=== PATIENT | female | born 1965 | race Two or more races ===

== ENCOUNTER 2024-06-20 07:20 | Day surgery (SDC) | payer BC, SELFPAY ==
[2024-06-19 12:48] VITALS: BMI 33.3
[2024-06-20] VITALS (13 sets, daily range): BP systolic 118–182; BP diastolic 79–122; PULSE 73–102; RESP 12–26; TEMP 36.6–36.7; O2SAT 86–98; BMI 33.2
[2024-06-20] MEDS: MEPERIDINE INJ 25 MG/ML VIAL (ASD USE ONLY) IV (09:20)
[2024-06-20] MEDS: MIDAZOLAM INJ 1 MG/ML VIAL 2 ML (ASD USE ONLY) 2 MG IV (09:20)
[2024-06-20] MEDS: fentaNYL CIT INJ 50 mCg/ML AMP 2ML (ASD USE ONLY) IV (09:24)
[2024-06-20] MEDS: DiphenhydrAMINE INJ 50 MG/ML VIAL 25 MG IV (09:24)
[2024-06-20] MEDS: SODIUM CHLORIDE 0.9% 500 ML 500 ML 150 ML IV (09:50)
[2024-06-20] MEDS: ONDANSETRON INJ 2 MG/ML INJ 2 ML 4 MG IV (10:05)
--- NOTE | 2024-06-20 10:22 | SUR.PHASEII ---
0943 Pt arrived into PACU. Extremely sedate. No response with painful stimuli. Nasal trumpet remains in place. Lung sounds clear upon resp. BS x 4. Will continue to monitor closely. 0950 IV NS 500ml hung. Pt remains sedated. Sats 94% on 4L/oxy mask
--- NOTE | 2024-06-20 10:36 | SUR.PHASEII ---
1010 Pt remains drowsy, yet approp. Denies pain, N/V or SOB. Respirations and oxygenation improved.
--- NOTE | 2024-06-20 11:21 | SUR.PHASEII ---
1045 Pt more awake and alert. 02 weaned off. Pt denies ain or N/V. Cont to pass flatus. , Dwayne, given pt update. 1105 Pt assessment unchanged. No complaints. Amb with steady gait. assisting pt with getting dressed. DC instructions given. Both state understanding. Pt meets dc criteria-to home.
== END 2024-06-20 11:05 | disposition home or self-care (01) ==
PROVIDERS: PCP Family Medicine; Referring Provider Specialist; Visit Provider Specialist
PROC: 0DBE8ZX Excision of Large Intestine, Via Natural or Artificial Opening Endoscopic, Diagnostic (ICD-10-PCS; CPT 45380; principal; 2024-06-20 12:00)
DX: K64.9 Unspecified hemorrhoids (principal); K57.31 Diverticulosis of large intestine without perforation or abscess with bleeding
CPT/HCPCS: 45378; J1200; J2175; J2250; J2405; J3010; J7040

== ENCOUNTER → 2024-07-16 | Outpatient (CLI) | payer BC, SELFPAY ==
--- NOTE | 2024-07-16 10:15 | XR_ITS ---
Examination: Abdomen sonogram, Limited Date and time of exam: July 16, 2024 1036 hours INDICATIONS: Lower abdominal pain beginning 6 months ago Technique: Real-time mcqueen scale transabdominal sonographic images of the upper abdomen obtained. Findings: Normal gallbladder Normal common bile duct and 2 cm Pancreatic head 2.9 cm Liver 15.2 cm fatty infiltration no focal liver lesions Normal hepatopedal portal venous flow Patent IVC IMPRESSION: Normal gallbladder Liver normal size fatty liver
== END | disposition home or self-care (01) ==
LOC: CDIM 09:52
PROVIDERS: PCP Family Medicine; Referring Provider Specialist; Visit Provider Specialist
DX: K76.0 Fatty (change of) liver, not elsewhere classified (principal)
CPT/HCPCS: 76705

== ENCOUNTER → 2024-07-26 | Outpatient (BNVA) | payer BC, SELFPAY | END | disposition home or self-care (01) | PROVIDERS: PCP Family Medicine; Referring Provider Family Medicine; Visit Provider Urology | DX: R33.9 Retention of urine, unspecified (principal); Z87.440 Personal history of urinary (tract) infections; R35.0 Frequency of micturition; Z96.0 Presence of urogenital implants | CPT/HCPCS: 81003; 99212; G0463 ==

== ENCOUNTER → 2024-09-10 | Outpatient (BNVA) | payer BC, SELFPAY | END | disposition home or self-care (01) | PROVIDERS: PCP Family Medicine; Referring Provider Family Medicine; Visit Provider Urology | DX: D41.4 Neoplasm of uncertain behavior of bladder (principal); N35.92 Unspecified urethral stricture, female; G89.4 Chronic pain syndrome; Z87.442 Personal history of urinary calculi; Z87.440 Personal history of urinary (tract) infections; Z87.891 Personal history of nicotine dependence | CPT/HCPCS: 52214; 81003; 96372; A4217; A4649; C1894; J1580; A9270 ==

== ENCOUNTER 2024-09-21 08:40 | Day surgery (SDC) | payer BC, SELFPAY ==
[2024-09-20 13:34] VITALS: BMI 34.1
[2024-09-21] VITALS (8 sets, daily range): BP systolic 121–166; BP diastolic 74–97; PULSE 76–84; RESP 12–19; TEMP 36.1–36.8; O2SAT 94–100; BMI 33.3
[2024-09-21] MEDS: SODIUM CHLORIDE 0.9% 500 ML 500 ML 20 ML IV (10:21)
[2024-09-21] MEDS: ONDANSETRON INJ 2 MG/ML INJ 2 ML 4 MG IV (10:25)
[2024-09-21] MEDS: MIDAZOLAM INJ 1 MG/ML VIAL 2 ML (ASD USE ONLY) 2 MG IV (10:30)
[2024-09-21] MEDS: DiphenhydrAMINE INJ 50 MG/ML VIAL 25 MG IV (10:30)
[2024-09-21] MEDS: fentaNYL CIT INJ 50 mCg/ML AMP 2ML (ASD USE ONLY) IV (10:30)
--- NOTE | 2024-09-21 11:29 | SUR.PHASEII ---
Addendum entered by Amber Jimenez RN 09/21/24 12:09: @1119 Original Note: REPORT GIVEN TO NIKOLAI AGUILAR
== END 2024-09-21 11:25 | disposition home or self-care (01) ==
PROVIDERS: PCP Registered Nurse; Referring Provider Specialist; Visit Provider Specialist
PROC: (CPT 43239; principal; 2024-09-21 12:45)
DX: K22.10 Ulcer of esophagus without bleeding (principal); K29.70 Gastritis, unspecified, without bleeding; K29.50 Unspecified chronic gastritis without bleeding; K31.89 Other diseases of stomach and duodenum
CPT/HCPCS: 43239; A4649; J1200; J2250; J2405; J3010; J7040

== ENCOUNTER → 2024-10-29 | Outpatient (CLI) | payer BC, SELFPAY ==
--- NOTE | 2024-10-29 10:00 | XR_ITS ---
Examination: JOSSELINE, hepatobiliary radioisotope scan Gallbladder ejection fraction study. Date and time of exam: October 29, 2024 0954 hours INDICATIONS: Abdominal pain 5 months bloating Technique: 6.0 mCi of 99M Hepatolite administered. Serial imaging then obtained from immediate through 60 minutes. 2.0 mcg selective catheter Kinevac administered for gallbladder ejection fraction study. Findings: Radioisotope activity within the liver is reasonably homogenous. Gallbladder, common bile duct small bowel activity noted Impression: Gallbladder activity Abnormal gallbladder ejection fraction, 2%, normal greater than 35%
== END | disposition home or self-care (01) ==
LOC: SNUC 09:56
PROVIDERS: PCP Family Medicine; Referring Provider Specialist; Visit Provider Specialist
DX: R93.2 Abnormal findings on diagnostic imaging of liver and biliary tract (principal)
CPT/HCPCS: 78227; A9537; J2805

== ENCOUNTER → 2024-12-11 | Outpatient (BNVA) | payer BC, SELFPAY | END | disposition home or self-care (01) | PROVIDERS: PCP Family Medicine; Referring Provider Family Medicine; Visit Provider Urology | DX: G89.4 Chronic pain syndrome (principal); R10.2 Pelvic and perineal pain; Z87.440 Personal history of urinary (tract) infections; Z87.442 Personal history of urinary calculi; R35.0 Frequency of micturition | CPT/HCPCS: 81003; 99212; G0463 ==

== ENCOUNTER → 2025-01-22 | Outpatient (CLI) | payer BC, SELFPAY ==
--- NOTE | 2025-01-22 08:17 | XR_ITS ---
Examination: PA lateral chest 2 views TECHNIQUE: Upright PA lateral chest 2 views Date and time: January 22, 2025 0822 hours INDICATIONS: Chest pain shortness of breath beginning 3 months ago FINDINGS: Normal heart size. The lungs are clear. Moderate osteopenia IMPRESSION: No active disease.
[2025-01-22 09:26] LABS: Collection Type, Urine Clean Catch
[2025-01-22 09:53] LABS: Basophils # (Auto) 0.0 Thou/mm3 (0.0-0.2); Basophils % (Auto) 1 % (0-2.5); Eosinophils # (Auto) 0.1 Thou/mm3 (0.0-0.5); Eosinophils % (Auto) 1 % (0-10); Hematocrit 43.0 % (36.0-46.0); Hemoglobin 13.8 g/dL (12.0-16.0); Immature Granulocytes Auto 0.01 Thou/mm3 (0.00-0.00); Lymphocytes # (Auto) 2.0 Thou/mm3 (1.0-4.8); Lymphocytes % (Auto) 30 % (10-50); Mean Corpuscular HGB Conc 32.1 g/dl (31.0-37.0); Mean Corpuscular Hemoglobin 26.3 pg (25.0-35.0); Mean Corpuscular Volume 82 fL (80-100); Monocytes # (Auto) 0.4 Thou/mm3 (0.0-0.8); Monocytes % (Auto) 5 % (0-12); Neutrophils # (Auto) 4.2 Thou/mm3 (1.8-7.7); Neutrophils % (Auto) 62 % (37-80); Nucleated Red Blood Cell # 0.00 Thou/mm3 (0.00-0.00); Nucleated Red Blood Cell % 0 /100 WBC (0); Platelet Count 324 Thou/mm3 (140-440); RDW Standard Deviation 46.1 fL (36.4-46.3); Red Blood Count 5.24 Miln/mm3 (4.00-5.20); White Blood Count 6.6 Thou/mm3 (3.6-11.0)
[2025-01-22 10:04] LABS: Glucose Estimated Average 111 mg/dL (80-131); Hemoglobin A1C 5.5 % Hgb (4.8-6.0)
[2025-01-22 10:09] LABS: B-Type Natriuretic Peptide < 20 pg/mL (0-100)
[2025-01-22 10:12] LABS: Vitamin B12 409 pg/mL (211-911); Vitamin D 25 Hydroxy Total 28.0 ng/mL (7.3-40.2)
[2025-01-22 10:13] LABS: Bilirubin,Urine Negative (Negative); Blood,Urine Negative (Negative); Clarity,Urine Clear (Clear/Hazy); Color,Urine Yellow (Lt Yel-Yel); Culture Indicated,Urine Not Indicated; Glucose, Urine Negative (Negative); Ketones,Urine Negative (Negative); Leukocyte Esterase,Urine Negative (Negative); Nitrite,Urine Negative (Negative); PH,Urine 6.0 (5.0-7.0); Protein,Urine Negative (Neg - Trace); RBC,Urine 2 /hpf (0-3); Specific Gravity,Urine 1.031 (1.001-1.035); Squamous Epithelial Cell,Urine 10 /hpf (0-5); Urobilinogen,Urine Negative mg/dL (0.0-1.0); WBC,Urine 1 /hpf (0-5)
[2025-01-22 10:17] LABS: Alanine Aminotransferase 38 U/L (10-49); Albumin, Serum 4.5 gm/dL (3.4-4.8); Albumin/Globulin Ratio 1.9 (1.2-2.2); Alkaline Phosphatase 101 U/L (46-116); Anion Gap 10 (7-16); Aspartate Amino Transferase 31 U/L (0-34); BUN/Creatinine Ratio 13 Ratio (12-20); Bilirubin,Total 0.5 mg/dL (0.3-1.2); Blood Urea Nitrogen 13 mg/dL (9-23); Calcium 9.7 mg/dL (8.3-10.6); Calcium (Corrected) 9.7 mg/dL (8.5-10.1); Carbon Dioxide 27.3 mMol/L (20.0-31.0); Cardiac Risk Estimate 3.2 RATIO (3.7-5.6); Chloride 109 mMol/L (98-107); Cholesterol 198 mg/dL (132-200); Creatinine (Component) 1.0 mg/dL (0.6-1.3); Free T4 (Free Thyroxine) 1.07 ng/dL (0.89-1.76); Globulin 2.4 gm/dL (2.3-3.5); Glucose 110 mg/dL (74-106); HDL Cholesterol 61 mg/dL (40-60); LDL Cholesterol,Calculated 113 mg/dL (0-130); Osmolality,Calculated 291 (275-295); Potassium 4.6 mMol/L (3.4-5.1); Sodium 146 mMol/L (136-145); Thyroid Stimulating Hormone 1.53 uIU/mL (0.55-4.78); Total Protein 6.9 gm/dL (5.7-8.2); Triglycerides 120 mg/dL (30-150); Troponin I < 0.002 ng/mL (0.0-0.045); eGFR > 60 See Note
[2025-01-22 12:49] LABS: Cocci Serology, IgM Negative (Negative)
[2025-01-23 10:57] LABS: Cocci Serology, IgG Negative (Negative)
== END | disposition home or self-care (01) ==
LOC: COPL 08:06
PROVIDERS: PCP Family Medicine; Referring Provider Registered Nurse; Visit Provider Radiology Diagnostic Radiology
DX: R07.89 Other chest pain (principal); R06.02 Shortness of breath; R53.82 Chronic fatigue, unspecified
CPT/HCPCS: 36415; 71046; 80053; 80061; 81001; 82306; 82607; 83036; 83880; 84439; 84443; 84484; 85025; 86331; 86635

== ENCOUNTER 2025-03-11 09:25 | Day surgery (SDC) | payer BC, SELFPAY ==
[2025-03-08 13:37] VITALS: BMI 32.8
[2025-03-11] VITALS (9 sets, daily range): BP systolic 142–172; BP diastolic 79–106; PULSE 65–77; RESP 13–19; TEMP 36.7–36.8; O2SAT 96–100; BMI 32.8
[2025-03-11] MEDS: MIDAZOLAM INJ 1 MG/ML VIAL 2 ML (ASD USE ONLY) 2 MG IVP (11:20)
[2025-03-11] MEDS: SODIUM CHLORIDE 0.9% 500 ML 500 ML 20 ML IV (11:20)
[2025-03-11] MEDS: BENZOCAINE 20% (Hurricaine) SPRAY 1 DOSE TOP (11:20)
[2025-03-11] MEDS: fentaNYL CIT INJ 50 mCg/ML AMP 2ML (ASD USE ONLY) IVP (11:21)
== END 2025-03-11 11:53 | disposition home or self-care (01) ==
PROVIDERS: Referring Provider Specialist; Visit Provider Specialist
PROC: (CPT 43239; principal; 2025-03-11 10:00)
DX: K29.50 Unspecified chronic gastritis without bleeding (principal); K20.90 Esophagitis, unspecified without bleeding; R07.89 Other chest pain; Z87.11 Personal history of peptic ulcer disease
CPT/HCPCS: 43239; A4649; J1200; J2250; J3010; J7999; A9270